=== PATIENT | female | born 1965 | race Caucasian/White ===

== ENCOUNTER 2016-09-24 14:16 | Inpatient (IN) | payer BC, OTHER ==
[2016-09-24] MEDS ORDERED: Morphine 2 MG/ML Syringe IVPUSH STA (15:17)
[2016-09-24] MEDS ORDERED: Propofol 200 MG/20 ML SDV ONE (16:16)
[2016-09-24] MEDS ORDERED: fentaNYL 250 MCG/5 ML SDV ONE (16:39)
[2016-09-24] MEDS ORDERED: Midazolam 1 MG/ML 2 ML SDV ONE (16:39)
[2016-09-24] MEDS ORDERED: Lidocaine 2% 5 ML SDV ONE (16:40)
--- NOTE | 2016-09-24 16:45 | CR ---
EXAMINATION: 2 views of the left knee and 2 views of the left femur HISTORY: Fracture COMPARISON: Same day FINDINGS: There is a markedly comminuted and moderately displaced distal femur fracture identified. Possible intra-articular extension is noted within the intertrochanteric region. The osseous structu res appear osteopenic. There is a moderate joint effusion. The proximal left femur appears intact ho wever not well characterized within the region of the head. IMPRESSION: 1. Comminuted displaced distal left femur fracture identified.
--- NOTE | 2016-09-24 17:00 | PCM.PREANE ---
Preanesthetic Assessment - Anesthesia/Transfusion/Family Hx Anesthesia History: Prior Anesthesia Without Reaction Family History of Anesthesia Reaction: No - Review of Systems General: No Symptoms Pulmonary: No Symptoms Cardiovascular: No Symptoms Gastrointestinal: No symptoms Neurological: No Symptoms Other: Reports: None - Physical Assessment NPO Status Date: 09/23/16 NPO Status Time: 22:30 (10 pm food 1030 am cliq) O2 Sat by Pulse Oximetry: 96 Respiratory Rate: 15 Vital Signs: Last Vital Signs Temp 36.8 C 09/24/16 14:29 Pulse 83 09/24/16 16:39 Resp 15 09/24/16 16:39 BP 134/80 09/24/16 16:39 Pulse Ox 96 09/24/16 16:39 Height: 1.57 m Weight: 58.967 kg ASA Class: 2E Mental Status: Alert & Oriented x3 Airway Class: Mallampati = 1 Dentition: Reports: Missing Tooth/Teeth ROM/Head Extension: Full Lungs: Clear to auscultation, Normal respiratory effort Cardiovascular: Regular Rate, Regular Rhythm - Allergies Allergies/Adverse Reactions: Allergies Allergy/AdvReac Type Severity Reaction Status Date / Time No Known Allergies Allergy Verified 09/24/16 14:26 - Blood Blood Available: No - Anesthesia Plan Pre-Op Medication Ordered: None - Acknowledgements Anesthesia Type Planned: General Anesthesia Pt an Appropriate Candidate for the Planned Anesthesia: Yes Alternatives and Risks of Anesthesia Discussed w Pt/Guardian: Yes Pt/Guardian Understands and Agrees with Anesthesia Plan: Yes Additional Comments: Fell at 11 am today, slipped on ice, Pt does not want spinal, will plan GA/LMA PreAnesthesia Questionnaire Cardiovascular History: Reports: Hypertension, Other (see below) (on Diovan) - Past Surgical History Musculoskeletal Surgical History: Reports: Other (see below) (orif femur and orif wrist) - SUBSTANCE USE Smoking Status *Q: Current Every Day Smoker Tobacco Use Within Last Twelve Months: Cigarettes Recreational Drug Use History: No - CURRENT (IN HOUSE) MEDS Current Meds: Current Medications Discontinued Medications Fentanyl (Sublimaze) Confirm Administered Dose 250 mcg .ROUTE .STK-MED ONE Stop: 09/24/16 16:40 Lidocaine (Xylocaine-Mpf 2%) Confirm Administered Dose 5 ml .ROUTE .STK-MED ONE Stop: 09/24/16 16:41 Midazolam HCl (Versed 1 Mg/Ml) Confirm Administered Dose 2 mg .ROUTE .STK-MED ONE Stop: 09/24/16 16:40 Morphine Sulfate (Morphine) 2 mg IVPUSH ONETIME STA Stop: 09/24/16 15:18 Last Admin: 09/24/16 15:25 Dose: 2 mg Propofol (Diprivan 20 Ml) Confirm Administered Dose 200 mg .ROUTE .STK-MED ONE Stop: 09/24/16 16:17 Preanesthetic Assessment - PHYSICAL ASSESSMENT O2 Sat by Pulse Oximetry: 96 RR: 15 Vital Signs: Last Vital Signs Temp 36.8 C 09/24/16 14:29 Pulse 83 09/24/16 16:39 Resp 15 09/24/16 16:39 BP 134/80 09/24/16 16:39 Pulse Ox 96 09/24/16 16:39 Height: 1.57 m Weight: 58.967 kg - ALLERGIES Allergies/Adverse Reactions: Allergies Allergy/AdvReac Type Severity Reaction Status Date / Time No Known Allergies Allergy Verified 09/24/16 14:26
[2016-09-24] MEDS ORDERED: ceFAZolin 1 GM in Premix Bag 1 BAG IV ONE ×2 (17:03→17:05)
--- NOTE | 2016-09-24 17:30 | PCM.HP ---
H&P History of Present Illness - General Date of Service: 09/24/16 Source of Information: Patient, Family History Limitations: Reports: No limitations - History of Present Illness Initial Comments - Free Text/Narative: 50 y/o female who fell earlier today injuring left LE. C/o immediate pain and inability to WB. Denies other injuries. Evaluated in [place] and referred for orthopedic evaluation. Currently in traction. Denies distal paralysis, paresthesias. No previous h/o R knee pain. Onset of Symptoms: Reports: today Quality: Reports: Sharp Severity: severe Improves with: Reports: Immobilization Worsens with: Reports: Movement Associated Symptoms: Reports: no other symptoms Left Leg Pain Score (Numeric/FACES): 4 - Related Data Allergies/Adverse Reactions: Allergies Allergy/AdvReac Type Severity Reaction Status Date / Time No Known Allergies Allergy Verified 09/24/16 14:26 Past Medical History Cardiovascular History: Reports: Hypertension, Other (see below) (on Diovan) - Past Surgical History Musculoskeletal Surgical History: Reports: Other (see below) (orif R femur and orif R wrist) Social & Family History - Family History Family Medical History: Noncontributory - Tobacco Use Smoking Status *Q: Current Every Day Smoker Years of Tobacco use: 1 Packs/Tins Daily: 30 - Recreational Drug Use Recreational Drug Use: No H&P Review of Systems - Review of Systems: Review Of Systems: See Below General: Reports: no symptoms HEENT: Reports: no symptoms Pulmonary: Reports: No Symptoms Cardiovascular: Reports: no symptoms Gastrointestinal: Reports: No symptoms Genitourinary: Reports: no symptoms Skin: Reports: no symptoms Psychiatric: Reports: no symptoms Neurological: Reports: No Symptoms Hematologic/Lymphatic: Reports: no symptoms Immunologic: Reports: no symptoms Exam - Exam Exam: See Below - Vital Signs Vital Signs: Last Vital Signs Temp 98.2 F 09/24/16 14:29 Pulse 83 09/24/16 16:39 Resp 15 09/24/16 16:59 BP 134/80 09/24/16 16:39 Pulse Ox 96 09/24/16 16:59 Weight: 58.967 kg - Exam General: alert, oriented, 4 HEENT: Conjunctiva clear, Hearing intact, Nares patent Neck: supple, trachea midline, 2 Lungs: Normal respiratory effort Cardiovascular: regular rate Abdomen: soft (Female) Exam: Deferred Rectal (Female) Exam: Deferred Neuro Extensive - Mental Status: alert, oriented x3 Psychiatric: alert, normal affect, normal mood Physical Exam Comments:: Exam of LLE shows traction splint to be in place. This was removed without difficulty. Area of ecchymosis and swelling over distal/medial thigh. Skin intact. Thigh and calf compartments soft. No pain in hip with gentle ROM of hip. ROM at knee deferred due to XR findings. AT/EHL/gastroc 5/5. Sensation intact. DP 2+. - Patient Data Imaging Impressions last 24 hrs: XR left knee/femur shows comminuted supracondylar distal femur fracture. CT shows intra-articular extension. *Q Meaningful Use (ADM) - VTE *Q VTE Criteria *Q: - Stroke *Q Stroke Criteria *Q: - AMI *Q AMI Criteria *Q: - Problem List (1) Supracondylar fracture of left femur SNOMED Code(s): 080275282 ICD Code: S72.452A - DISPL SUPRCNDL FX W/O INTRCNDL EXTN LOWER END L FEMUR, INIT Status: Acute Current Visit: Yes Qualifiers: Encounter type: initial encounter Fracture type: closed Qualified Code(s) : S72.452A - Displaced supracondylar fracture without intracondylar extension of lower end of left femur, initial encounter for closed fracture Problem List Initiated/Reviewed/Updated: Yes Orders Last 24hrs: Active Orders 24 hr Category Date Time Status TYPE AND SCREEN [BBK] Stat Lab 09/24/16 17:15 Received ceFAZolin [Ancef] 1 gm Med 09/24/16 17:05 Active Premix Bag 1 bag IV ONETIME Medication Orders Cefazolin Sodium/Dextrose 1 gm (/ Premix) 50 mls @ 100 mls/hr IV ONETIME ONE Stop: 09/24/16 17:34 Assessment/Plan Comment:: Assessment: Left comminuted supracondylar distal femur fracture Plan: 1. Knee immobilizer placed 2. Recommend surgical treatment--ORIF left distal femur vs. IM rodding L femur 3. Procedure and post operative course discussed with patient and family 4. Risks of surgery include, but are not limited to, infection, n/v injury, need for transfusion, stiffness, nonunion, malunion, blood clots, and anesthetic complications. Patient agrees to proceed. 5. Unfortunately, we do not have distal femur periarticular plates or intercondylar bolts for the IM katelyn in house. They will need to be delivered from [employer] and sterilized. Due to the time to arrange implants, will need to plan for surgery in the morning. She will be given pain medication prn overnight. Patient and family disappointed, but understand situation.
[2016-09-24] MEDS ORDERED: Ondansetron 4 MG/2 ML SDV IV PRN (17:43)
[2016-09-24] MEDS ORDERED: Ketorolac 30 MG/ML SDV IVPUSH PRN (17:43)
[2016-09-24] MEDS: Lactated Ringers 1,000 ML IV SCH (17:55)
[2016-09-24] MEDS: Acetaminophen/HYDROcodone 325-10 MG Tab PO PRN ×2 (18:11→23:25)
[2016-09-24 18:28] LABS: CHLORIDE,CL 96 mmol/L (98-110); SODIUM,NA 129 mmol/L (136-146)
--- NOTE | 2016-09-24 20:04 | PCM.CONS ---
H&P History of Present Illness - General Admit Problem/Dx: Admission Diagnosis/Problem Admission Diagnosis/Problem Fracture of shaft of femur - History of Present Illness Initial Comments - Free Text/Narative: 50 yo female smoker with pmh of hypertension who slipped on ice and broke her right femur. She was admitted by Dr. Chowdary who plans on taking to OR tomorrow for ORIF. Patient takes Diovan for her hypertension and reports her blood pressure usually ranges from 140s-160s systolic. She denies any chest pain or shortness of breath. She reports chronic smokers cough. Left Leg Pain Score (Numeric/FACES): 4 - Related Data Allergies/Adverse Reactions: Allergies Allergy/AdvReac Type Severity Reaction Status Date / Time No Known Allergies Allergy Verified 09/24/16 14:26 Home Medications: Home Meds Valsartan/Hydrochlorothiazide [Diovan Hct 160-12.5 mg Tab] 1 tab PO DAILY [History] Past Medical History Cardiovascular History: Reports: Hypertension, Other (see below) (on Diovan) - Past Surgical History Musculoskeletal Surgical History: Reports: Other (see below) (orif R femur and orif R wrist) Social & Family History - Family History Family Medical History: Noncontributory - Tobacco Use Smoking Status *Q: Current Every Day Smoker Years of Tobacco use: 1 Packs/Tins Daily: 30 Used Tobacco, but Quit: No - Recreational Drug Use Recreational Drug Use: No H&P Review of Systems - Review of Systems: Review Of Systems: See Below General: Reports: no symptoms HEENT: Reports: no symptoms Pulmonary: Reports: No Symptoms Cardiovascular: Reports: no symptoms Gastrointestinal: Reports: No symptoms Genitourinary: Reports: no symptoms Musculoskeletal: Reports: no symptoms Skin: Reports: no symptoms Psychiatric: Reports: no symptoms Neurological: Reports: No Symptoms Hematologic/Lymphatic: Reports: no symptoms Immunologic: Reports: no symptoms Exam - Exam Exam: See Below - Vital Signs Vital Signs: Last Vital Signs Temp 36.6 C 09/24/16 19:54 Pulse 83 09/24/16 19:54 Resp 18 09/24/16 19:54 BP 170/94 H 09/24/16 19:54 Pulse Ox 98 09/24/16 19:54 Weight: 58.967 kg - Exam General: alert, oriented HEENT: Conjunctiva clear, Mucosa moist & pink Neck: supple, trachea midline, 2 Lungs: Clear to auscultation, Normal respiratory effort Cardiovascular: regular rate, regular rhythm, systolic murmur, diastolic murmur Abdomen: normal bowel sounds, soft Skin: warm, dry, intact Neurological: No: focal deficit - Patient Data Lab Results last 24 hrs: Laboratory Results - last 24 hr 09/24/16 09/24/16 Range/Units 18:00 18:00 WBC 13.11 H (4.0-11.0) K/uL RBC 3.41 L (4.30-5.90) M/uL Hgb 11.6 L (12.0-16.0) g/dL Hct 33.0 L (36.0-46.0) % MCV 96.8 (80.0-98.0) fL MCH 34.0 H (27.0-32.0) pg MCHC 35.2 (31.0-37.0) g/dL RDW Std Deviation 43.5 (28.0-62.0) fl RDW Coeff of Maris 12 (11.0-15.0) % Plt Count 188 (150-400) K/uL MPV 9.00 (7.40-12.00) fL Neut % (Auto) 93.3 H (48.0-80.0) % Lymph % (Auto) 3.9 L (16.0-40.0) % [place] % (Auto) 2.7 (0.0-15.0) % Eos % (Auto) 0.0 (0.0-7.0) % Baso % (Auto) 0.1 (0.0-1.5) % Neut # 12.2 H (1.4-5.7) K/uL Lymph # 0.5 L (0.6-2.4) K/uL [place] # 0.4 (0.0-0.8) K/uL Eos # 0.0 (0.0-0.7) K/uL Baso # 0.0 (0.0-0.1) K/uL Nucleated RBC % 0.0 /100WBC Nucleated RBCs # 0 K/uL Sodium 129 L (136-146) mmol/L Potassium 4.0 (3.5-5.1) mmol/L Chloride 96 L (98-110) mmol/L Carbon Dioxide 24 (21-31) mmol/L BUN 11 (6.0-23.0) mg/dL Creatinine 0.8 (0.6-1.5) mg/dL Est Cr Clr Drug Dosing 65.06 mL/min Estimated GFR (MDRD) > 60.0 ml/min Glucose 114 H (60-110) mg/dL Calcium 8.0 L (8.8-10.8) mg/dL Result Diagrams: 09/24/16 18:00 09/24/16 18:00 Consult PN Assessment/Plan Problem List Initiated/Reviewed/Updated: Yes My Orders last 24 hours: My Active Orders 09/25/16 00:00 BMP [BASIC METABOLIC PANEL,BMP] [CHEM] Q6H 09/25/16 06:00 BMP [BASIC METABOLIC PANEL,BMP] [CHEM] Q6H 09/25/16 09:00 Valsartan [Diovan] 160 mg PO DAILY Plan: 50 yo female with right femur fracture Hypertension: will recommend continue valsartan and adequate pain management. will try to avoid large fluctuations in blood pressure Hyponatremia: will continue to monitor while on IV fluids, would hold HCTZ. CXR ordered. DVT prophylaxis when deemed safe by orthopedics.
[2016-09-25] MEDS: Lactated Ringers 1,000 ML IV SCH (02:02)
[2016-09-25] MEDS: HYDROmorphone 2 MG/ML Syringe IVPUSH PRN ×2 (02:11→06:49)
[2016-09-25 02:19] LABS: CHLORIDE,CL 94 mmol/L (98-110); SODIUM,NA 126 mmol/L (136-146)
[2016-09-25 06:44] LABS: CHLORIDE,CL 98 mmol/L (98-110); SODIUM,NA 130 mmol/L (136-146)
[2016-09-25] MEDS ORDERED: Ondansetron 4 MG/2 ML SDV ONE (07:44)
[2016-09-25] MEDS ORDERED: Lidocaine 2% 5 ML SDV ONE (07:44)
[2016-09-25] MEDS ORDERED: Midazolam 1 MG/ML 2 ML SDV ONE (07:45)
[2016-09-25] MEDS ORDERED: fentaNYL 250 MCG/5 ML SDV ONE (07:45)
[2016-09-25] MEDS ORDERED: Propofol 200 MG/20 ML SDV ONE (07:45)
[2016-09-25] MEDS ORDERED: ceFAZolin 1 GM in Premix Bag 1 BAG IV ONE (08:00)
[2016-09-25] MEDS ORDERED: Dexamethasone 4 MG/ML 5 ML MDV ONE (08:17)
[2016-09-25] MEDS ORDERED: ePHEDrine 50 MG/ML SDV ONE (08:54)
[2016-09-25] MEDS ORDERED: Ketorolac 30 MG/ML SDV ONE (09:53)
--- NOTE | 2016-09-25 10:29 | PCM.OPNOTE ---
<Yesika Frost - Last Filed: 09/25/16 10:26> - General Post-Op/Procedure Note Date of Surgery/Procedure: 09/25/16 Post-Op Diagnosis: left comminuted supracondylar distal femur fracture Anesthesia Technique: General LMA Secondary Surgeon: Shelly Chowdary Mint Machine Operator: Yesika Frost Mint Machine Operator: Stephany Thao EBL in mLs: 250 Condition: Fair Free Text/Narrative:: Intake & Output 09/24/16 09/25/16 09/25/16 22:59 06:59 14:59 Intake Total 1150 Output Total 1100 Balance 50 <Shelly Chowdary R - Last Filed: 09/25/16 10:35> - General Post-Op/Procedure Note Free Text/Narrative:: Intake & Output 09/24/16 09/25/16 09/25/16 22:59 06:59 14:59 Intake Total 1150 Output Total 1100 Balance 50 #[id number]
--- NOTE | 2016-09-25 12:31 | PCM.CONSN ---
- Review of Systems Systems Review Comment:: tolerated Surgery well, denies any pain. - Patient Data Vitals - most recent: Last Vital Signs Temp 36.6 C 09/25/16 11:30 Pulse 99 09/25/16 11:30 Resp 18 09/25/16 11:30 BP 97/68 09/25/16 11:30 Pulse Ox 94 L 09/25/16 11:30 Weight - most recent: 58.967 kg I&O - last 24 hours: Intake & Output 09/24/16 09/25/16 09/25/16 22:59 06:59 14:59 Intake Total 1150 Output Total 1100 Balance 50 Lab Results last 24 hrs: Laboratory Results - last 24 hr 09/24/16 09/24/16 09/25/16 Range/Units 18:00 18:00 01:50 WBC 13.11 H (4.0-11.0) K/uL RBC 3.41 L (4.30-5.90) M/uL Hgb 11.6 L (12.0-16.0) g/dL Hct 33.0 L (36.0-46.0) % MCV 96.8 (80.0-98.0) fL MCH 34.0 H (27.0-32.0) pg MCHC 35.2 (31.0-37.0) g/dL RDW Std Deviation 43.5 (28.0-62.0) fl RDW Coeff of Maris 12 (11.0-15.0) % Plt Count 188 (150-400) K/uL MPV 9.00 (7.40-12.00) fL Neut % (Auto) 93.3 H (48.0-80.0) % Lymph % (Auto) 3.9 L (16.0-40.0) % [place] % (Auto) 2.7 (0.0-15.0) % Eos % (Auto) 0.0 (0.0-7.0) % Baso % (Auto) 0.1 (0.0-1.5) % Neut # 12.2 H (1.4-5.7) K/uL Lymph # 0.5 L (0.6-2.4) K/uL [place]at # 0.4 (0.0-0.8) K/uL Eos # 0.0 (0.0-0.7) K/uL Baso # 0.0 (0.0-0.1) K/uL Nucleated RBC % 0.0 /100WBC Nucleated RBCs # 0 K/uL Sodium 129 L 126 L (136-146) mmol/L Potassium 4.0 3.8 (3.5-5.1) mmol/L Chloride 96 L 94 L (98-110) mmol/L Carbon Dioxide 24 23 (21-31) mmol/L BUN 11 10 (6.0-23.0) mg/dL Creatinine 0.8 0.7 (0.6-1.5) mg/dL Est Cr Clr Drug Dosing 65.06 74.35 mL/min Estimated GFR (MDRD) > 60.0 > 60.0 ml/min Glucose 114 H 92 (60-110) mg/dL Calcium 8.0 L 7.8 L (8.8-10.8) mg/dL 09/25/16 Range/Units 06:05 WBC (4.0-11.0) K/uL RBC (4.30-5.90) M/uL Hgb (12.0-16.0) g/dL Hct (36.0-46.0) % MCV (80.0-98.0) fL MCH (27.0-32.0) pg MCHC (31.0-37.0) g/dL RDW Std Deviation (28.0-62.0) fl RDW Coeff of Maris (11.0-15.0) % Plt Count (150-400) K/uL MPV (7.40-12.00) fL Neut % (Auto) (48.0-80.0) % Lymph % (Auto) (16.0-40.0) % [place] % (Auto) (0.0-15.0) % Eos % (Auto) (0.0-7.0) % Baso % (Auto) (0.0-1.5) % Neut # (1.4-5.7) K/uL Lymph # (0.6-2.4) K/uL [place] # (0.0-0.8) K/uL Eos # (0.0-0.7) K/uL Baso # (0.0-0.1) K/uL Nucleated RBC % /100WBC Nucleated RBCs # K/uL Sodium 130 L (136-146) mmol/L Potassium 3.5 (3.5-5.1) mmol/L Chloride 98 (98-110) mmol/L Carbon Dioxide 24 (21-31) mmol/L BUN 9 (6.0-23.0) mg/dL Creatinine 0.7 (0.6-1.5) mg/dL Est Cr Clr Drug Dosing 74.35 mL/min Estimated GFR (MDRD) > 60.0 ml/min Glucose 83 (60-110) mg/dL Calcium 8.1 L (8.8-10.8) mg/dL Med Orders - Current: Current Medications Acetaminophen/Hydrocodone Bitart ([place] 325-10 Mg) 1 - 2 tab PO Q4H PRN PRN Reason: Pain Last Admin: 09/24/16 23:25 Dose: 1 tab Docusate Sodium (Colace) 100 mg PO BID [facility] Hydromorphone HCl (Dilaudid) 0.5 - 1 mg IVPUSH Q3H PRN PRN Reason: Pain Last Admin: 09/25/16 06:49 Dose: 1 mg Cefazolin Sodium/Dextrose 1 gm (/ Premix) 50 mls @ 100 mls/hr IV Q8H [facility] Stop: 09/26/16 01:29 Sodium Chloride (Normal Saline) 1,000 mls @ 125 mls/hr IV ASDIRECTED [facility] Ketorolac Tromethamine (Toradol) 30 mg IVPUSH Q6H PRN PRN Reason: Pain Last Admin: 09/24/16 20:41 Dose: 30 mg Ondansetron HCl (Zofran) 4 mg IV Q8HR PRN PRN Reason: NAUSEA/VOMITING Rivaroxaban (Xarelto) 10 mg PO DAILY [facility] Discontinued Medications Dexamethasone (Dexamethasone) Confirm Administered Dose 20 mg .ROUTE .STK-MED ONE Stop: 09/25/16 08:18 Ephedrine Sulfate (Ephedrine Sulfate) Confirm Administered Dose 50 mg .ROUTE .STK-MED ONE Stop: 09/25/16 08:55 Fentanyl (Sublimaze) Confirm Administered Dose 250 mcg .ROUTE .STK-MED ONE Stop: 09/24/16 16:40 Fentanyl (Sublimaze) Confirm Administered Dose 250 mcg .ROUTE .STK-MED ONE Stop: 09/25/16 07:46 Cefazolin Sodium/Dextrose 1 gm (/ Premix) 50 mls @ 100 mls/hr IV ONETIME ONE Stop: 09/24/16 17:32 Last Admin: 09/24/16 19:37 Dose: Not Given Cefazolin Sodium/Dextrose 1 gm (/ Premix) 50 mls @ 100 mls/hr IV ONETIME ONE Stop: 09/24/16 17:34 Last Admin: 09/24/16 19:37 Dose: Not Given Lactated Ringer's (Ringers, Lactated) 1,000 mls @ 125 mls/hr IV ASDIRECTED [facility] Last Admin: 09/25/16 02:02 Dose: 125 mls/hr Cefazolin Sodium/Dextrose 1 gm (/ Premix) 50 mls @ 100 mls/hr IV ONETIME ONE Stop: 09/25/16 08:29 Last Admin: 09/25/16 08:04 Dose: Not Given Cefazolin Sodium/Dextrose (Ancef) Confirm Administered Dose 50 mls @ as directed .ROUTE .STK-MED ONE Stop: 09/25/16 08:10 Ketorolac Tromethamine (Toradol) Confirm Administered Dose 30 mg .ROUTE .STK- MED ONE Stop: 09/25/16 09:54 Lidocaine (Xylocaine-Mpf 2%) Confirm Administered Dose 5 ml .ROUTE .STK-MED ONE Stop: 09/24/16 16:41 Lidocaine (Xylocaine-Mpf 2%) Confirm Administered Dose 5 ml .ROUTE .STK-MED ONE Stop: 09/25/16 07:45 Midazolam HCl (Versed 1 Mg/Ml) Confirm Administered Dose 2 mg .ROUTE .STK-MED ONE Stop: 09/24/16 16:40 Midazolam HCl (Versed 1 Mg/Ml) Confirm Administered Dose 2 mg .ROUTE .STK-MED ONE Stop: 09/25/16 07:46 Morphine Sulfate (Morphine) 2 mg IVPUSH ONETIME STA Stop: 09/24/16 15:18 Last Admin: 09/24/16 15:25 Dose: 2 mg Ondansetron HCl (Zofran) Confirm Administered Dose 4 mg .ROUTE .STK-MED ONE Stop: 09/25/16 07:45 Propofol (Diprivan 20 Ml) Confirm Administered Dose 200 mg .ROUTE .STK-MED ONE Stop: 09/24/16 16:17 Propofol (Diprivan 20 Ml) Confirm Administered Dose 200 mg .ROUTE .STK-MED ONE Stop: 09/25/16 07:46 Valsartan (Diovan) 160 mg PO DAILY [facility] Last Admin: 09/25/16 08:04 Dose: Not Given - Exam General: alert, oriented Lungs: Clear to auscultation, Normal respiratory effort Cardiovascular: Regular Rate, Regular Rhythm Skin: warm, dry, intact Neurological: no new focal deficit Consult PN Assessment/Plan Problem List Initiated/Reviewed/Updated: Yes My Orders last 24 hours: My Active Orders 09/25/16 12:24 BASIC METABOLIC PANEL,BMP [CHEM] Routine 09/25/16 12:30 Sodium Chloride 0.9% [Normal Saline] 1,000 ml IV ASDIRECTED 09/26/16 05:11 BASIC METABOLIC PANEL,BMP [CHEM] AM CBC WITH AUTO DIFF [HEME] AM Plan: 50 yo female s/p ORIF of right femur fracture Hx of Hypertension: blood pressure is 90s systolic would hold antihypertensive medication for now Hyponatremia: sodium of 130, would switch to NS IV fluids, holding HCTZ.
--- NOTE | 2016-09-25 12:43 | PCM.POSTAN ---
POST ANESTHESIA ASSESSMENT - MENTAL STATUS Mental Status: alert, oriented - RESPIRATORY Respiratory Status: respiratory rate WNL, airway patent, O2 saturation stable, supplemental oxygen - CARDIOVASCULAR CV Status: pulse rate WNL, blood pressure stable - GASTROINTESTINAL GI Status: no symptoms - PAIN Pain Score: 0 - POST OP HYDRATION Hydration Status: adequate & stable
[2016-09-25] MEDS ORDERED: fentaNYL 100 MCG/2 ML SDV ONE ×3 (12:56→13:21)
[2016-09-25 13:10] LABS: CHLORIDE,CL 96 mmol/L (98-110); SODIUM,NA 130 mmol/L (136-146)
--- NOTE | 2016-09-25 13:25 | PCM48HPAN ---
Post Anesthesia Note - EVALUATION WITHIN 48HRS OF ANESTHETIC Vital Signs in Normal Range: Yes Patient Participated in Evaluation: Yes Respiratory Function Stable: Yes Airway Patent: Yes Cardiovascular Function Stable: Yes Hydration Status Stable: Yes Pain Control Satisfactory: Yes Nausea and Vomiting Control Satisfactory: Yes Mental Status Recovered: Yes
--- NOTE | 2016-09-25 13:45 | OR ---
SURGEON: Shelly Chowdary MD DATE OF PROCEDURE: 09/25/2016 PREOPERATIVE DIAGNOSIS: Left supracondylar distal femur fracture with intra-articular extension. POSTOPERATIVE DIAGNOSIS: Left supracondylar distal femur fracture with intra-articular extension. PROCEDURE: Open reduction and internal fixation, left distal femur. SNACK BAR CASHIER: 1. Stephany Thao PA-C. 2. Yesika Frost MD, PGY-2. ANESTHESIA: General. ESTIMATED BLOOD LOSS: 250 mL. TOURNIQUET TIME: Zero minutes. COMPLICATIONS: None. DVT PROPHYLAXIS: PAS boot to the contralateral lower extremity. IMPLANTS USED: [place] periarticular distal femur plate with combination of 6.5 mm nonlocking, 4.5 mm nonlocking, and 4.5 mm locking screws. BRIEF HISTORY: Elizabeth is a 50-year-old female, who fell on September 24, 2016. She complained of an immediate pain in her left femur. She was seen initially in [place] and was referred for orthopedic evaluation. X-rays and CT of the distal femur showed a comminuted intra-articular supracondylar femur fracture. At that time, I recommended surgical treatment. The risks and goals of the procedure were discussed with the patient and were documented preoperatively. She agreed to proceed. DESCRIPTION OF PROCEDURE: The patient was properly identified and brought to the operating room. She was transferred from the OR cart and placed on the operating table in supine position. General anesthesia was administered. After adequate anesthesia was obtained, the left lower extremity was prepped in standard fashion using ChloraPrep solution. It was then sterilely draped. A time-out was performed to ensure correct site and procedure. Preoperative antibiotics were given. The surgical site had been marked preoperatively. The left lower extremity was placed over a radiolucent triangle. An incision was made extending from the lateral joint line proximally over the lateral aspect of the femur. The subcutaneous tissues were incised down to the level of the IT band. The iliotibial band was then split. The vastus was elevated. It was released from the intermuscular septum. The bone was easily visualized as the fracture did do some of the soft tissue dissection. The fracture site was then evaluated. It was quite comminuted. There were multiple butterfly fragments in the supracondylar region. The fracture was copiously irrigated with saline solution to remove the fracture hematoma. She had very poor bone quality noted on the preop x-rays and CT scan. The supracondylar region was nearly completely devoid of cancellous bone. The intra-articular extension appeared to be well aligned on x-ray. Once I had the fracture site exposed, I did place a periarticular plate on the distal femur. K-wires were used to provisionally hold the fixation. Its position was checked in the AP and lateral plane using C-arm imaging. Once the position of the plate was acceptable on the distal femur, I proceeded to place a nonlocking 6.5 mm cancellous screw to align the plate with the bone. Again the position was checked using the C-arm imaging. There was quite a bit of comminution of the condyles as well, however, it appeared to be fairly well maintained with the periosteum. I elected to place three additional locking screws through the condyles to provide better fixation of the distal fragment. Once I was able to obtain control of the distal fragment, I attempted to take it out of the extension that it was then. The femur was brought out to length and I was able to buttress the fracture medially to realign the fracture. A nonlocking 4.5 mm screw was then placed proximally to hold the femur out to length. The remainder of the screws and the proximal fragment were placed in a locking fashion to provide a bridging construct. Additional locking screws were then placed back into the distal fragment. Final C-arm images confirmed good alignment of the fracture and joint line. Due to the degree of osteopenia that was noted, 30 mL of crushed cancellous chips were packed into the supracondylar area. A butterfly piece of bone was then placed beneath the plate to hold this bone in place. The wound was then copiously irrigated with saline solution. The vastus was reapproximated and the iliotibial band was closed with #1 Vicryl. The subcutaneous tissues were closed with 2-0 Vicryl and the skin was closed with christian. Xeroform gauze was placed over the wound and a bulky dressing was applied. She was placed into a knee immobilizer. She was awakened from her anesthetic and transferred back to the operating room cart. She was brought to recovery room in stable condition. All needle and sponge counts were correct. JW / RANDY /[id number]
[2016-09-25] MEDS: ceFAZolin 1 GM in Premix Bag 1 BAG IV SCH (16:54)
[2016-09-25] MEDS: Sodium Chloride 0.9% 1,000 ML IV SCH (19:58)
[2016-09-26] MEDS: ceFAZolin 1 GM in Premix Bag 1 BAG IV SCH (00:53)
[2016-09-26] MEDS: Sodium Chloride 0.9% 1,000 ML IV SCH (04:34)
[2016-09-26 06:58] LABS: CHLORIDE,CL 97 mmol/L (98-110); SODIUM,NA 130 mmol/L (136-146)
[2016-09-26] MEDS ORDERED: Rivaroxaban 10 MG Tab PO SCH (09:00)
[2016-09-26] MEDS ORDERED: Docusate Sodium 100 MG Cap PO SCH (09:00)
--- NOTE | 2016-09-26 10:06 | PCM.SURGPN ---
- General Info Date of Service: 09/26/16 POD#: 1 Functional Status: Reports: pain controlled - Review of Systems General: Reports: No Symptoms HEENT: Reports: no symptoms Pulmonary: Reports: no symptoms Cardiovascular: Reports: No Symptoms Gastrointestinal: Reports: No symptoms Genitourinary: Reports: no symptoms Musculoskeletal: Reports: no symptoms Skin: Reports: no symptoms Neurological: Reports: No Symptoms Psychiatric: Reports: no symptoms Systems Review Comment:: Patient doing well today. Tolerated a diet without N/V. Has not been out of bed since procedure. Stephenson in place. Passing flatus but no BM. Denies any pain, SOB , or CP. - Patient Data Vitals - most recent: Last Vital Signs Temp 37.5 C 09/26/16 08:45 Pulse 92 09/26/16 08:45 Resp 19 09/26/16 08:45 BP 104/63 09/26/16 08:45 Pulse Ox 91 L 09/26/16 09:32 Weight - most recent: 58.967 kg I&O - last 24 hours: Intake & Output 09/25/16 09/26/16 09/26/16 22:59 06:59 14:59 Intake Total 975 1550 15 Output Total 350 1100 Balance 625 450 15 Lab Results last 24 hrs: Laboratory Results - last 24 hr 09/25/16 09/26/16 09/26/16 Range/Units 12:35 05:55 05:55 WBC 7.05 (4.0-11.0) K/uL RBC 1.81 L (4.30-5.90) M/uL Hgb 6.2 L (12.0-16.0) g/dL Hct 17.7 L (36.0-46.0) % MCV 97.8 (80.0-98.0) fL MCH 34.3 H (27.0-32.0) pg MCHC 35.0 (31.0-37.0) g/dL RDW Std Deviation 44.8 (28.0-62.0) fl RDW Coeff of Maris 13 (11.0-15.0) % Plt Count 137 L (150-400) K/uL MPV 8.60 (7.40-12.00) fL Neut % (Auto) 71.4 (48.0-80.0) % Lymph % (Auto) 20.4 (16.0-40.0) % [place] % (Auto) 7.7 (0.0-15.0) % Eos % (Auto) 0.4 (0.0-7.0) % Baso % (Auto) 0.1 (0.0-1.5) % Neut # 5.0 (1.4-5.7) K/uL Lymph # 1.4 (0.6-2.4) K/uL [place] # 0.5 (0.0-0.8) K/uL Eos # 0.0 (0.0-0.7) K/uL Baso # 0.0 (0.0-0.1) K/uL Nucleated RBC % 0.0 /100WBC Nucleated RBCs # 0 K/uL Sodium 130 L 130 L (136-146) mmol/L Potassium 4.2 4.0 (3.5-5.1) mmol/L Chloride 96 L 97 L (98-110) mmol/L Carbon Dioxide 26 26 (21-31) mmol/L BUN 9 9 (6.0-23.0) mg/dL Creatinine 0.9 0.8 (0.6-1.5) mg/dL Est Cr Clr Drug Dosing 57.83 65.06 mL/min Estimated GFR (MDRD) > 60.0 > 60.0 ml/min Glucose 117 H 99 (60-110) mg/dL Calcium 8.2 L 7.6 L (8.8-10.8) mg/dL Med Orders - Current: Current Medications Acetaminophen/Hydrocodone Bitart (Amistad 325-10 Mg) 1 - 2 tab PO Q4H PRN PRN Reason: Pain Last Admin: 09/24/16 23:25 Dose: 1 tab Docusate Sodium (Colace) 100 mg PO BID [facility] Last Admin: 09/26/16 08:56 Dose: 100 mg Hydromorphone HCl (Dilaudid) 0.5 - 1 mg IVPUSH Q3H PRN PRN Reason: Pain Last Admin: 09/25/16 06:49 Dose: 1 mg Sodium Chloride (Normal Saline) 1,000 mls @ 125 mls/hr IV ASDIRECTED [facility] Last Admin: 09/26/16 04:34 Dose: 125 mls/hr Ketorolac Tromethamine (Toradol) 30 mg IVPUSH Q6H PRN PRN Reason: Pain Last Admin: 09/24/16 20:41 Dose: 30 mg Ondansetron HCl (Zofran) 4 mg IV Q8HR PRN PRN Reason: NAUSEA/VOMITING Rivaroxaban (Xarelto) 10 mg PO DAILY [facility] Last Admin: 09/26/16 09:57 Dose: 10 mg Discontinued Medications Dexamethasone (Dexamethasone) Confirm Administered Dose 20 mg .ROUTE .STK-MED ONE Stop: 09/25/16 08:18 Ephedrine Sulfate (Ephedrine Sulfate) Confirm Administered Dose 50 mg .ROUTE .STK-MED ONE Stop: 09/25/16 08:55 Fentanyl (Sublimaze) Confirm Administered Dose 250 mcg .ROUTE .STK-MED ONE Stop: 09/24/16 16:40 Fentanyl (Sublimaze) Confirm Administered Dose 250 mcg .ROUTE .STK-MED ONE Stop: 09/25/16 07:46 Fentanyl (Sublimaze) Confirm Administered Dose 100 mcg .ROUTE .STK-MED ONE Stop: 09/25/16 12:57 Fentanyl (Sublimaze) Confirm Administered Dose 100 mcg .ROUTE .STK-MED ONE Stop: 09/25/16 13:20 Fentanyl (Sublimaze) Confirm Administered Dose 100 mcg .ROUTE .STK-MED ONE Stop: 09/25/16 13:22 Cefazolin Sodium/Dextrose 1 gm (/ Premix) 50 mls @ 100 mls/hr IV ONETIME ONE Stop: 09/24/16 17:32 Last Admin: 09/24/16 19:37 Dose: Not Given Cefazolin Sodium/Dextrose 1 gm (/ Premix) 50 mls @ 100 mls/hr IV ONETIME ONE Stop: 09/24/16 17:34 Last Admin: 09/24/16 19:37 Dose: Not Given Lactated Ringer's (Ringers, Lactated) 1,000 mls @ 125 mls/hr IV ASDIRECTED [facility] Last Admin: 09/25/16 02:02 Dose: 125 mls/hr Cefazolin Sodium/Dextrose 1 gm (/ Premix) 50 mls @ 100 mls/hr IV ONETIME ONE Stop: 09/25/16 08:29 Last Admin: 09/25/16 08:04 Dose: Not Given Cefazolin Sodium/Dextrose (Ancef) Confirm Administered Dose 50 mls @ as directed .ROUTE .STK-MED ONE Stop: 09/25/16 08:10 Cefazolin Sodium/Dextrose 1 gm (/ Premix) 50 mls @ 100 mls/hr IV Q8H [facility] Stop: 09/26/16 01:29 Last Admin: 09/26/16 00:53 Dose: 100 mls/hr Ketorolac Tromethamine (Toradol) Confirm Administered Dose 30 mg .ROUTE .STK- MED ONE Stop: 09/25/16 09:54 Lidocaine (Xylocaine-Mpf 2%) Confirm Administered Dose 5 ml .ROUTE .STK-MED ONE Stop: 09/24/16 16:41 Lidocaine (Xylocaine-Mpf 2%) Confirm Administered Dose 5 ml .ROUTE .STK-MED ONE Stop: 09/25/16 07:45 Midazolam HCl (Versed 1 Mg/Ml) Confirm Administered Dose 2 mg .ROUTE .STK-MED ONE Stop: 09/24/16 16:40 Midazolam HCl (Versed 1 Mg/Ml) Confirm Administered Dose 2 mg .ROUTE .STK-MED ONE Stop: 09/25/16 07:46 Morphine Sulfate (Morphine) 2 mg IVPUSH ONETIME STA Stop: 09/24/16 15:18 Last Admin: 09/24/16 15:25 Dose: 2 mg Ondansetron HCl (Zofran) Confirm Administered Dose 4 mg .ROUTE .STK-MED ONE Stop: 09/25/16 07:45 Propofol (Diprivan 20 Ml) Confirm Administered Dose 200 mg .ROUTE .STK-MED ONE Stop: 09/24/16 16:17 Propofol (Diprivan 20 Ml) Confirm Administered Dose 200 mg .ROUTE .STK-MED ONE Stop: 09/25/16 07:46 Valsartan (Diovan) 160 mg PO DAILY [facility] Last Admin: 09/25/16 08:04 Dose: Not Given - Exam Wound/Incisions: dressing dry and intact General: alert, oriented, cooperative, no acute distress HEENT: Pupils equal, Pupils reactive, EOMI, Mucous membr. moist/pink Neck: supple Lungs: Normal respiratory effort, Decreased breath sounds, Wheezing Cardiovascular: Regular Rate, Regular Rhythm, No Murmurs Abdomen: bowel sounds present, soft, no tenderness, no distension Extremities: normal pulses, no calf tenderness Skin: warm, dry, intact Neurological: no new focal deficit Psy/Mental Status: alert, normal affect, normal mood - Problem List & Annotations (1) Acute post-hemorrhagic anemia SNOMED Code(s): 313941262 Code(s): D62 - ACUTE POSTHEMORRHAGIC ANEMIA Status: Acute Current Visit: Yes - Problem List Review Problem List Initiated/Reviewed/Updated: Yes - My Orders Last 24 Hours: Active Orders 24 hr Category Date Time Status Activity as Tolerated [RC] .Routine Care 09/25/16 10:26 Active Intake and Output [RC] Q12H Care 09/25/16 10:26 Active Neurovascular Check [RC] Q2HR Care 09/25/16 10:26 Inactive Notify Provider Vital Signs [RC] ASDIRECTED Care 09/25/16 10:26 Inactive Oxygen Therapy Adult [Oxygen Therapy] [RC] PRN Care 09/26/16 07:30 Active RT Incentive Spirometry [RC] ASDIRECTED Care 09/25/16 10:26 Active Vital Signs [RC] Q4H Care 09/25/16 10:26 Inactive PT Evaluation and Treatment [CONS] Routine Cons 09/25/16 10:26 Active HEMOGLOBIN/HEMATOCRIT,HH [HEME] DAILY Lab 09/26/16 10:30 Ordered HEMOGLOBIN/HEMATOCRIT,HH [HEME] DAILY Lab 09/27/16 10:30 Ordered HEMOGLOBIN/HEMATOCRIT,HH [HEME] DAILY Lab 09/28/16 10:30 Ordered RED BLOOD CELLS LP [BBK] Routine Lab 09/26/16 06:46 Results Docusate Sodium [Colace] Med 09/26/16 09:00 Active 100 mg PO BID Rivaroxaban [Xarelto] Med 09/26/16 09:00 Active 10 mg PO DAILY Sodium Chloride 0.9% [Normal Saline] 1,000 ml Med 09/25/16 12:30 Active IV ASDIRECTED Transfuse Red Blood Cells [COMM] Routine Oth 09/26/16 06:46 Ordered Medication Orders Acetaminophen/Hydrocodone Bitart ([place] 325-10 Mg) 1 - 2 tab PO Q4H PRN PRN Reason: Pain Last Admin: 09/24/16 23:25 Dose: 1 tab Admin: 09/24/16 18:11 Dose: 1 tab Docusate Sodium (Colace) 100 mg PO BID [facility] Last Admin: 09/26/16 08:56 Dose: 100 mg Hydromorphone HCl (Dilaudid) 0.5 - 1 mg IVPUSH Q3H PRN PRN Reason: Pain Last Admin: 09/25/16 06:49 Dose: 1 mg Admin: 09/25/16 02:11 Dose: 1 mg Sodium Chloride (Normal Saline) 1,000 mls @ 125 mls/hr IV ASDIRECTED [facility] Last Admin: 09/26/16 04:34 Dose: 125 mls/hr Infusion: 09/26/16 03:58 Dose: 125 mls/hr Admin: 09/25/16 19:58 Dose: 125 mls/hr Ketorolac Tromethamine (Toradol) 30 mg IVPUSH Q6H PRN PRN Reason: Pain Last Admin: 09/24/16 20:41 Dose: 30 mg Ondansetron HCl (Zofran) 4 mg IV Q8HR PRN PRN Reason: NAUSEA/VOMITING Rivaroxaban (Xarelto) 10 mg PO DAILY [facility] Last Admin: 09/26/16 09:57 Dose: 10 mg - Assessment Assessment (Free Text/Narrative):: Assessment: 50 yro female s/p ORIF of left distal femure, POD 1. Patient is doing well this morning. Pain is well controlled. Plan: 1. Left comminuted supracondylar distal femur fracture: s/p ORIF. Patient pain is well controlled with current pain regimen. Continue pain regimen. PT has been ordered. IF patient is able to participate in PT and able to tolerate exercise, possible discharge home later today. WB status: toe touch only with immobilizer at all times. Patient will need walker vs crutches. 2. acute blood loss anemia 2/2 procedure. Patient is POD 1 from ORIF. Will give patient 2 units of PRBC. Repeat hgb following last PRBC. 3. Discontinue stephenson. Patient needs to void per self, prior to discharge. 4.Regular diet. 5. discharge planning if patient is able to meet the followin. tolerating mobility and cleared by PT. 2. Hgb > 8.0 s/p 2 units of PRBC. 3. VOiding per self. 4. Pain is well controlled on PO pain regimen. Patient was seen and discussed with Dr Chowdary. Yesika Frost MD PGY 2 surgery 09/26/2016 10:17 AM
--- NOTE | 2016-09-26 10:12 | PCM.SN ---
- Free Text/Narrative Note: Patient seen and examined. Agree with MD Santosh note. Patient with quite a bit of anxiety over being in the hospital. Would like to get home. Does not want any anti-anxiety meds. Pain in femur well controlled. Has not required pain medication since surgery. Was OOB yesterday with nursing. Able to TTWB on left with the use of walker. Hgb 6.2 today--2U PRBC being transfused. Dressing dry/ intact. Immobilizer in place. No calf TTP. AT/EHL/gastroc 11/12. Sensation intact. DP 2+. Plan: 1. finish 1U PRBC transfusion then PT evaluation to make sure patient is safe to go home 2. complete 2nd 1U PRBC transfusion and recheck hgb one hour after 3. If hgb >8.0 ok to discharge home tonight (if ok with hospitalist) 4. dressing change prior to discharge- Aquicell (send additional Aquicell with patient to change in 5-7 days) 5. f/u 2 weeks as instructed 6. patient agrees with plan
--- NOTE | 2016-09-26 11:54 | PCM.PN ---
- Review of Systems Systems Review Comment:: patient denies any pain and eager to get home. - Patient Data Vitals - most recent: Last Vital Signs Temp 37.2 C 09/26/16 11:43 Pulse 73 09/26/16 11:43 Resp 18 09/26/16 11:43 BP 108/72 09/26/16 11:43 Pulse Ox 94 L 09/26/16 11:43 Weight - most recent: 58.967 kg I&O - last 24 hours: Intake & Output 09/25/16 09/26/16 09/26/16 22:59 06:59 14:59 Intake Total 975 1550 313 Output Total 350 1100 Balance 625 450 313 Lab Results last 24 hrs: Laboratory Results - last 24 hr 09/25/16 09/26/16 09/26/16 Range/Units 12:35 05:55 05:55 WBC 7.05 (4.0-11.0) K/uL RBC 1.81 L (4.30-5.90) M/uL Hgb 6.2 L (12.0-16.0) g/dL Hct 17.7 L (36.0-46.0) % MCV 97.8 (80.0-98.0) fL MCH 34.3 H (27.0-32.0) pg MCHC 35.0 (31.0-37.0) g/dL RDW Std Deviation 44.8 (28.0-62.0) fl RDW Coeff of Maris 13 (11.0-15.0) % Plt Count 137 L (150-400) K/uL MPV 8.60 (7.40-12.00) fL Neut % (Auto) 71.4 (48.0-80.0) % Lymph % (Auto) 20.4 (16.0-40.0) % [place] % (Auto) 7.7 (0.0-15.0) % Eos % (Auto) 0.4 (0.0-7.0) % Baso % (Auto) 0.1 (0.0-1.5) % Neut # 5.0 (1.4-5.7) K/uL Lymph # 1.4 (0.6-2.4) K/uL [place] # 0.5 (0.0-0.8) K/uL Eos # 0.0 (0.0-0.7) K/uL Baso # 0.0 (0.0-0.1) K/uL Nucleated RBC % 0.0 /100WBC Nucleated RBCs # 0 K/uL Sodium 130 L 130 L (136-146) mmol/L Potassium 4.2 4.0 (3.5-5.1) mmol/L Chloride 96 L 97 L (98-110) mmol/L Carbon Dioxide 26 26 (21-31) mmol/L BUN 9 9 (6.0-23.0) mg/dL Creatinine 0.9 0.8 (0.6-1.5) mg/dL Est Cr Clr Drug Dosing 57.83 65.06 mL/min Estimated GFR (MDRD) > 60.0 > 60.0 ml/min Glucose 117 H 99 (60-110) mg/dL Calcium 8.2 L 7.6 L (8.8-10.8) mg/dL Med Orders - Current: Current Medications Acetaminophen/Hydrocodone Bitart ([place] 325-10 Mg) 1 - 2 tab PO Q4H PRN PRN Reason: Pain Last Admin: 09/24/16 23:25 Dose: 1 tab Docusate Sodium (Colace) 100 mg PO BID [facility] Last Admin: 09/26/16 08:56 Dose: 100 mg Hydromorphone HCl (Dilaudid) 0.5 - 1 mg IVPUSH Q3H PRN PRN Reason: Pain Last Admin: 09/25/16 06:49 Dose: 1 mg Sodium Chloride (Normal Saline) 1,000 mls @ 125 mls/hr IV ASDIRECTED [facility] Last Admin: 09/26/16 04:34 Dose: 125 mls/hr Ketorolac Tromethamine (Toradol) 30 mg IVPUSH Q6H PRN PRN Reason: Pain Last Admin: 09/24/16 20:41 Dose: 30 mg Ondansetron HCl (Zofran) 4 mg IV Q8HR PRN PRN Reason: NAUSEA/VOMITING Rivaroxaban (Xarelto) 10 mg PO DAILY [facility] Last Admin: 09/26/16 09:57 Dose: 10 mg Discontinued Medications Dexamethasone (Dexamethasone) Confirm Administered Dose 20 mg .ROUTE .STK-MED ONE Stop: 09/25/16 08:18 Ephedrine Sulfate (Ephedrine Sulfate) Confirm Administered Dose 50 mg .ROUTE .STK-MED ONE Stop: 09/25/16 08:55 Fentanyl (Sublimaze) Confirm Administered Dose 250 mcg .ROUTE .STK-MED ONE Stop: 09/24/16 16:40 Fentanyl (Sublimaze) Confirm Administered Dose 250 mcg .ROUTE .STK-MED ONE Stop: 09/25/16 07:46 Fentanyl (Sublimaze) Confirm Administered Dose 100 mcg .ROUTE .STK-MED ONE Stop: 09/25/16 12:57 Fentanyl (Sublimaze) Confirm Administered Dose 100 mcg .ROUTE .STK-MED ONE Stop: 09/25/16 13:20 Fentanyl (Sublimaze) Confirm Administered Dose 100 mcg .ROUTE .STK-MED ONE Stop: 09/25/16 13:22 Cefazolin Sodium/Dextrose 1 gm (/ Premix) 50 mls @ 100 mls/hr IV ONETIME ONE Stop: 09/24/16 17:32 Last Admin: 09/24/16 19:37 Dose: Not Given Cefazolin Sodium/Dextrose 1 gm (/ Premix) 50 mls @ 100 mls/hr IV ONETIME ONE Stop: 09/24/16 17:34 Last Admin: 09/24/16 19:37 Dose: Not Given Lactated Ringer's (Ringers, Lactated) 1,000 mls @ 125 mls/hr IV ASDIRECTED [facility] Last Admin: 09/25/16 02:02 Dose: 125 mls/hr Cefazolin Sodium/Dextrose 1 gm (/ Premix) 50 mls @ 100 mls/hr IV ONETIME ONE Stop: 09/25/16 08:29 Last Admin: 09/25/16 08:04 Dose: Not Given Cefazolin Sodium/Dextrose (Ancef) Confirm Administered Dose 50 mls @ as directed .ROUTE .STK-MED ONE Stop: 09/25/16 08:10 Cefazolin Sodium/Dextrose 1 gm (/ Premix) 50 mls @ 100 mls/hr IV Q8H [facility] Stop: 09/26/16 01:29 Last Admin: 09/26/16 00:53 Dose: 100 mls/hr Ketorolac Tromethamine (Toradol) Confirm Administered Dose 30 mg .ROUTE .STK- MED ONE Stop: 09/25/16 09:54 Lidocaine (Xylocaine-Mpf 2%) Confirm Administered Dose 5 ml .ROUTE .STK-MED ONE Stop: 09/24/16 16:41 Lidocaine (Xylocaine-Mpf 2%) Confirm Administered Dose 5 ml .ROUTE .STK-MED ONE Stop: 09/25/16 07:45 Midazolam HCl (Versed 1 Mg/Ml) Confirm Administered Dose 2 mg .ROUTE .STK-MED ONE Stop: 09/24/16 16:40 Midazolam HCl (Versed 1 Mg/Ml) Confirm Administered Dose 2 mg .ROUTE .STK-MED ONE Stop: 09/25/16 07:46 Morphine Sulfate (Morphine) 2 mg IVPUSH ONETIME STA Stop: 09/24/16 15:18 Last Admin: 09/24/16 15:25 Dose: 2 mg Ondansetron HCl (Zofran) Confirm Administered Dose 4 mg .ROUTE .STK-MED ONE Stop: 09/25/16 07:45 Propofol (Diprivan 20 Ml) Confirm Administered Dose 200 mg .ROUTE .STK-MED ONE Stop: 09/24/16 16:17 Propofol (Diprivan 20 Ml) Confirm Administered Dose 200 mg .ROUTE .STK-MED ONE Stop: 09/25/16 07:46 Valsartan (Diovan) 160 mg PO DAILY [facility] Last Admin: 09/25/16 08:04 Dose: Not Given - Exam General: alert, oriented Lungs: Clear to auscultation, Normal respiratory effort Cardiovascular: Regular Rate, Regular Rhythm Abdomen: bowel sounds present, soft, no tenderness, no distension Extremities: no edema - Problem List Review Problem List Initiated/Reviewed/Updated: Yes - My Orders Last 24 Hours: My Active Orders 09/25/16 12:30 Sodium Chloride 0.9% [Normal Saline] 1,000 ml IV ASDIRECTED 09/26/16 06:46 Transfuse Red Blood Cells [COMM] Routine - Plan Plan:: 50 yo female with left femur fracture: Milla is being transfused two unit of pRBC. If discharging home afterwords would discontinue here Diovan as her blood pressures have been low.
[2016-09-26 15:41] VITALS: BP 139/75
--- NOTE | 2016-09-27 10:45 | CR ---
EXAMINATION: Left knee HISTORY: ORIF COMPARISON: Same day TECHNIQUE: 9 fluoroscopic images provided. FINDINGS/IMPRESSION: Operative control films demonstrate screw and plate fixation of a comminuted di stal left femur fracture. Following placement of hardware positioning appears near-anatomic.
--- NOTE | 2016-09-27 12:47 | CT ---
EXAM DATE: 09/24/16 PATIENT'S AGE: 50 Patient: JOSE GIBSON Facility: [place], [place] Site . Site : 1965 Study: CT Knee Left WO CONT [id number]/17/2017 6:05:23 PM Ordering Physician: Ricarda Bravo Final Report: Indication: Femur fracture Technique: Noncontrast CT left knee Comparison: Left knee radiographs from same day Findings: There is a comminuted fracture of the distal diaphysis of the left femur which extends into the lateral epicondyle. The fracture extends to the surface of the lateral knee compartment. The femoral shaft lies anterior to the distal fracture fragment and the fracture margins overlap by approximately 2.2 cm. There is a moderate left knee joint hemarthrosis. Moderate amount of overlying soft tissue swelling. The patella and proximal tibia and fibula are intact. Impression: Comminuted, displaced fracture of the distal left femoral diaphysis with extension into the lateral left knee joint. Moderate-sized lipohemarthrosis. Dictated by Jannette Gautam MD @ Sep 24 2016 6:37PM (Electronic Signature) Report Signed by Proxy and Original Signed Document filed in the Medical Record. [facility]
--- NOTE | 2016-09-27 13:28 | CR ---
EXAM DATE: 09/24/16 PATIENT'S AGE: 50 Patient: JOSE GIBSON Facility: [place], [place] Site . Site : 1965 Study: XRay Chest [id number]/17/2017 9:54:30 PM Ordering Physician: Ricarda Bravo Final Report: INDICATION: preop, h/o tobacco use TECHNIQUE: Chest 1 view. COMPARISON: None. FINDINGS: Cardiovascular and mediastinum: Heart size and vasculature are normal in caliber and appearance. Mediastinum is within normal limits. Lungs and pleural space: Lungs are clear. No sign of infiltrate or mass. No sign of pleural effusion. No pneumothorax. Bones and soft tissues: No significant findings. IMPRESSION: Unremarkable chest. Dictated by: Carlos Reid MD @ 09/24/2016 22:49:02 (Electronic Signature) Report Signed by Proxy and Original Signed Document filed in the Medical Record. [facility]
--- NOTE | 2016-09-28 09:55 | PCM.SN ---
- Free Text/Narrative Note: Discharge summary Dressing was changed prior to discharge See discharge plan for complete list of discharge medications and instructions Dictation #: [id number]
--- NOTE | 2016-10-04 07:56 | DISCH ---
DATE OF ADMISSION: 09/24/2016 DATE OF DISCHARGE: 09/26/2016 PRIMARY CARE PHYSICIAN: Aranza PCP ADMITTING DIAGNOSIS: Left supracondylar distal femur fracture with intra-articular extension. OTHER MEDICAL DIAGNOSIS: 1. Hypertension DISCHARGE DIAGNOSES: 1. Status post open reduction and internal fixation, left distal femur 2. Acute posthemorrhagic anemia 3. Hypertension. BRIEF HISTORY: The patient is a 50-year-old female who fell on September 24, 2016. She complained of an immediate pain in her left femur. She was seen initially at [place] and was referred for orthopedic evaluation. X-rays and CT of the distal femur showed a comminuted intra-articular supracondylar femur fracture. At that time, a surgical intervention was recommended. OPERATION: Open reduction and internal fixation of left distal femur. HOSPITAL COURSE: Pain was controlled via IV and p.o. pain medication. The patient received 2 doses of Ancef postoperatively for 24 hours of antibiotic coverage. The patient was followed by the hospitalist and Physical Therapy during her hospital stay. Hgb on POD #2 was 6.2. Two units of PRBC was given at that time. Upon discharge, vital signs were stable. Discharge temperature was 36.9 degrees Celsius. Hemoglobin on day of discharge was 10.2. Xarelto 10 mg p.o. daily was started on postoperative day 1 for DVT prophylaxis. Pain is currently controlled with oral medications only. The patient is tolerating oral intake. She is ambulating with wheeled walker. She feels comfortable with discharge home today. DISCHARGE MEDICATIONS: 1. [place] 10/325 mg 2. Colace 100 mg 3. Xarelto 10 mg DISCHARGE INSTRUCTIONS: The patient will follow up with Elis Ramirez PA-C, on October 05, 2016. This appointment has been made by the patient. The patient will follow up with primary care provider in [facility]. She should wear knee immobilizer. For complete medication reconciliation and discharge instructions, please refer to the patient's EHR. If the patient has further questions or concerns prior to followup, she may call the clinic. CHERELLE PADILLA /[id number] DELMI
== END 2016-09-26 16:20 | disposition home or self-care (01) | DRG 308 ==
LOC: MW.SDS 14:16 → UNDOADMIN 16:37 → MW.MS 16:37
PROVIDERS: ADMIT Orthopaedic Surgery; ATTEND Orthopaedic Surgery
PROC: 0QSC04Z Reposition Left Lower Femur with Internal Fixation Device, Open Approach (ICD-10-PCS; principal; 2016-09-24)
DX: S72.462A Displaced supracondylar fracture with intracondylar extension of lower end of left femur, initial encounter for closed fracture (principal); W00.0XXA Fall on same level due to ice and snow, initial encounter; M85.852 Other specified disorders of bone density and structure, left thigh; E87.1 Hypo-osmolality and hyponatremia; I10 Essential (primary) hypertension; F17.200 Nicotine dependence, unspecified, uncomplicated; Z79.899 Other long term (current) drug therapy
CPT/HCPCS: 01360; 36415; 36430; 71010; 71010-26; 73552-26-LT; 73552-LT; 73560-26-LT; 73560-LT; 73700-26-LT; 73700-LT; 76001; 76001-26; 80048; 85014; 85018; 85025; 86850; 86900; 86901; 86920; 86921; 86922; 93005; 96374; 97161-GP; 99285-25; A9270-GY; C1713; J0690; J1100; J1170; J1885; J2250; J2270; J2405; J2704; J3010; J7040; J7120; P9016

== ENCOUNTER → 2016-09-30 | Outpatient (CLI) | payer BC | LOC: MW.CHORTHO 09:00 | PROVIDERS: ATTEND Physician Assistant | DX: Z51.81 Encounter for therapeutic drug level monitoring (principal); Z79.01 Long term (current) use of anticoagulants | CPT/HCPCS: 36415; 85027 ==

== ENCOUNTER → 2016-10-05 | Outpatient (CLI) | payer BC ==
--- NOTE | 2016-10-05 16:29 | CR ---
EXAMINATION: Left knee HISTORY: Hardware COMPARISON: 09/25/2016 TECHNIQUE: 2 views FINDINGS/IMPRESSION: Screw and plate fixates a comminuted distal left femur fracture, grossly unchan ged in position and alignment. There is increased sclerosis noted within the fracture, correlate wit h bone graft placement. Otherwise postoperative soft tissue changes are again noted.
== END ==
LOC: MW.CHORTHO 07:46
PROVIDERS: ATTEND Physician Assistant
DX: Z96.7 Presence of other bone and tendon implants (principal); Z87.81 Personal history of (healed) traumatic fracture; S72.402D Unspecified fracture of lower end of left femur, subsequent encounter for closed fracture with routine healing
CPT/HCPCS: 73560-26-LT; 73560-LT

== ENCOUNTER → 2016-10-19 | Outpatient (CLI) | payer BC ==
--- NOTE | 2016-10-19 16:41 | CR ---
EXAMINATION: Left knee HISTORY: Presence of implants COMPARISON: 10/05/2016 TECHNIQUE: 3 views FINDINGS/IMPRESSION: There is stable screw and plate fixation of a distal femur fracture with underl dileep bone graft material. Overall position and alignment appear grossly unchanged. There is generali zed osteopenia.
== END | disposition home or self-care (01) ==
LOC: MW.CHORTHO 07:47
PROVIDERS: ATTEND Orthopaedic Surgery
DX: Z09 Encounter for follow-up examination after completed treatment for conditions other than malignant neoplasm (principal); M85.80 Other specified disorders of bone density and structure, unspecified site; Z96.7 Presence of other bone and tendon implants; Z87.81 Personal history of (healed) traumatic fracture
CPT/HCPCS: 73560-26-LT; 73560-LT

== ENCOUNTER → 2016-11-09 | Outpatient (CLI) | payer BC ==
--- NOTE | 2016-11-09 17:22 | CR ---
EXAMINATION: Left femur HISTORY: Hardware COMPARISON: 09/24/2016 TECHNIQUE: 2 views FINDINGS: There is screw and plate hardware fixating a comminuted distal femur fracture. Bone graft material is also noted. The osseous structures otherwise appear osteopenic. There is a possible nond isplaced versus old proximal fibular fracture. No knee joint effusion. IMPRESSION: 1. Hardware fixation of a distal femur fracture. 2. Generalized osteopenia.
== END ==
LOC: MW.CHORTHO 07:11
PROVIDERS: ATTEND Orthopaedic Surgery
DX: S72.452A Displaced supracondylar fracture without intracondylar extension of lower end of left femur, initial encounter for closed fracture (principal); Z96.7 Presence of other bone and tendon implants; Z87.81 Personal history of (healed) traumatic fracture; M85.80 Other specified disorders of bone density and structure, unspecified site
CPT/HCPCS: 73552-26-LT; 73552-LT